=== PATIENT | female | born 1960 | race Caucasian/White ===

== ENCOUNTER → 2016-12-20 | Outpatient (CLI) | payer BC ==
[~2016-12-20] MED LIST: ASPI81TA28 PO; CLC100 PO; GABA1CAP5 PO; MULT-513 PO; OMEG10007 PO; OXYC5TAB PO; VITACAP26 PO; VITAMIN B3 PO
--- NOTE | 2016-12-20 16:29 | MAMMOGRAPHY REPORT ---
BILATERAL DIGITAL SCREENING MAMMOGRAM TOMOSYNTHESIS WITH CAD: 12/20/2016 TECHNIQUE: Breast tomosynthesis in addition to standard 2D mammography was performed. Current study was also evaluated with a Computer Aided Detection (CAD) system. COMPARISON: Comparison is made to exams dated: 12/13/2015 mammogram, 09/01/2014 mammogram, 08/03/2012 mammogram, 08/04/2013 mammogram, 07/18/2011 mammogram, and 05/18/2010 mammogram - [facility]. BREAST COMPOSITION: The tissue of both breasts is extremely dense, which lowers the sensitivity of mammography. FINDINGS: There are possible faint grouped calcifications seen within the left upper outer quadrant . Additionally, there are possible calcifications within the right lateral breast on the cc view, n ot clearly identified on the MLO view. Recommend bilateral spot magnification views for further hermann luation. The remainder of both breasts are stable compared to prior exams, without suspicious masses, calcifi cations, or areas of architectural distortion noted. IMPRESSION: ACR BI-RADS CATEGORY 0: INCOMPLETE EVALUATION: NEED ADDITIONAL IMAGING EVALUATION Possible bilateral calcifications, for which additional imaging evaluation is recommended. The josafat ent will be called to schedule an appointment. Approximately 10% of breast cancers are not detected with mammography. A negative mammographic repor t should not delay biopsy if a clinically suggestive mass is present. Nerissa Fish M.D. ah/:12/20/2016 16:04:35 Materials Associate: Sarah Beth GAUTHIER)(Nixon), [facility] letter sent: Addl Imaging 0 BI-RADS Code: ACR BI-RADS Category 0: Incomplete Evaluation: Need Additional Imaging Evaluation
== END | disposition home or self-care (01) ==
LOC: C.MAMM 14:40
PROVIDERS: ATTEND Family Medicine
DX: R92.0 Mammographic microcalcification found on diagnostic imaging of breast (principal)

== ENCOUNTER → 2016-12-30 | Outpatient (CLI) | payer BC ==
--- NOTE | 2016-12-30 14:01 | MAMMOGRAPHY REPORT ---
BILATERAL DIGITAL DIAGNOSTIC MAMMOGRAM: 12/30/2016 CLINICAL HISTORY: 56 year-old woman called back from screening mammography for possible bilateral mi crocalcifications. Family history of breast cancer = mother. TECHNIQUE: Spot magnification CC and ML views of each breast were obtained. COMPARISON: Comparison is made to exams dated: 12/20/2016 mammogram, 12/13/2015 mammogram, 09/01/2014 mammogram, 08/04/2013 mammogram, 08/03/2012 mammogram, and 07/18/2011 mammogram - [facility]. BREAST COMPOSITION: The tissue of both breasts is heterogeneously dense, which may obscure small ma sses. FINDINGS: There is a 6 mm cluster of faint punctate and amorphous microcalcifications in the upper outer quadrant of the left breast, approximately 4 cm from the nipple. Another smaller but similar- appearing cluster of faint punctate and amorphous microcalcifications is identified in the lateral r ight breast. Although these microcalcifications may represent benign fibrocystic changes, they were not clearly seen on the prior available 2012 and 2013 exams and are therefore indeterminate. Defin itive characterization with tissue sampling is recommended of the dominant cluster in the left breas t and pending benign pathology results, could follow the smaller cluster in the right breast in 6 mo nths. IMPRESSION: ACR BI-RADS CATEGORY 4: SUSPICIOUS 1. Left breast stereotactic guided biopsy is recommended for a 6 mm cluster of faint punctate and a morphous microcalcifications in the upper outer quadrant. 2. Pending benign pathology results in the left breast, would follow the smaller, similar-appearing cluster of faint punctate and amorphous microcalcifications in the lateral right breast in 6 months to ensure stability. These results and recommendations were discussed with the patient at the time of the exam. She tent atively scheduled the biopsy prior to leaving our department. Approximately 10% of breast cancers are not detected with mammography. A negative mammographic repor t should not delay biopsy if a clinically suggestive mass is present. Antonia Morales M.D. ay/:12/30/2016 13:59:22 Transmission Design Engineer: Luz Starks, [facility] letter sent: Abnormal / BI-RADS Code: ACR BI-RADS Category 4: Suspicious
== END | disposition home or self-care (01) ==
LOC: C.MAMM 10:36
PROVIDERS: ATTEND Family Medicine
DX: R92.0 Mammographic microcalcification found on diagnostic imaging of breast (principal); Z80.3 Family history of malignant neoplasm of breast

== ENCOUNTER → 2017-01-01 | Outpatient (CLI) | payer BC ==
--- NOTE | 2017-01-01 08:33 | Discharge Instructions ---
Discharge Instructions Procedure Procedure Date: Jan 01, 2017. Reason for visit: Left Calcs. Discharge Discharge Date: Jan 01, 2017. Discharge Diagnosis: status post breast biopsy Instructions Activity Recommendations: Additional Limitations (see below) Return to School/Work: no limitations Recommended Home Diet: No Limitations Provider Instructions: ACTIVITY RECOMMENDATIONS: * No lifting, pushing, pulling or exercising the affected side for three days. RETURN TO SCHOOL/WORK: * You may return to work/school after the procedure, but do not perform any strenuous activities for 24 to 48 hours. MEDICATIONS: * Tylenol (two 325 mg) every four to six hours if needed for mild pain (if not allergic to Tylenol). DIET: * Resume previous diet. SPECIAL CARE INSTRUCTIONS: * Keep biopsy site dry for 24 hours. May shower after 24 hours, but do not soak (bathe) incision. * May remove Tegaderm (plastic patch) tomorrow AFTER showering. * Leave the steri-strips on for one week. Allow the steri-strips to fall off by themselves. If not off after one week, you may remove them. You may place a Bandaid crosswise over the strips, if desired. * Apply ice 10 minutes on and 10 minutes off as needed. * Wear a bra at bedtime to sleep more comfortably for 2-3 days. * Your referring physician should have the results after approximately 5 to 7 business days. * Call for unusual bleeding, fever, drainage, etc or if you have any questions call during normal business hours or after hours call Dr Fish, . FOLLOW UP VISIT: Follow-up with Referring Physician as scheduled. Allergies Coded Allergies: No Known Allergies (Verified Allergy, Unknown, 06/19/05) Miguel A Justin Recommendations: Call your doctor if: * Temperature above 101 degrees * Pain not relieved by pain medicine ordered * There is increased drainage or redness from any incision * You have any unanswered questions or concerns. Your Doctors Instructions noted above were prepared by provider Nerissa Fish. Patient Signature Section: Patient Instructions Signature Page Majo Mujica Patient (or Guardian) Signature/Date: I have read and understand the instructions given to me by my caregivers. Caregiver/RN/Doctor Signature/Date: The above-named patient and/or guardian has received patient instructions on this date. + Original Patient Signature Page (only) stays with chart. Please make copy for patient.
--- NOTE | 2017-01-01 14:41 | MAMMOGRAPHY REPORT ---
THIS REPORT HAS BEEN AMENDED. STEREOTACTIC GUIDED BIOPSY LEFT BREAST: 01/01/2017 CLINICAL HISTORY: Indeterminate calcifications in the left upper outer quadrant. PATIENT CONSENT: The procedure, risks, benefits, and alternatives of stereotactic biopsy with clip p dang were discussed with the patient, and verbal and written consent was obtained. A timeout wa s performed immediately prior to the procedure. PROCEDURE DESCRIPTION: With stereotactic guidance, aseptic technique, and lidocaine as a local anest hetic (1% lidocaine to anesthetize the skin and 1% lidocaine with epinephrine to anesthetize the paulo per tissues), the area of concern was sampled multiple times with a 9-gauge vacuum-assisted biopsy n eedle (Suros Eviva). The path of approach was craniocaudal. The specimen radiograph demonstrates c alcifications to be present in the samples. A metallic marker clip was placed at the biopsy site. This was confirmed on postprocedure mammograms. Direct pressure was applied at the biopsy site and hemostasis was readily achieved. The patient tolerated the procedure without complication. She was given wound care instructions. COMPARISON: Comparison is made to exams dated: 12/30/2016 mammogram, 12/20/2016 mammogram, 12/13/2015 m ammogram, 09/01/2014 mammogram, 08/04/2013 mammogram, and 08/03/2012 mammogram - [facility]. IMPRESSION: STEREOTACTIC GUIDED BIOPSY Stereotactic biopsy of indeterminate calcifications in the left upper outer quadrant, with clip plac lulu. The patient will receive pathology results from her referring provider. Pending benign path ology results, recommend follow-up diagnostic mammograms of the right breast in 6 months to reevalua te right breast calcifications. Nerissa Fish M.D. ah/:01/01/2017 08:35:15 Tilt Wall Supervisor: Luz GAUTHIER)(Nixon), [facility] AMENDMENT: 01/08/2017 Nerissa Fish M.D. Pathology from left breast stereotactic biopsy was reviewed on 01/08/2017. The pathology showed misael gn breast tissue with microcalcifications, which is concordant with the imaging findings. As recomm ended on the prior diagnostic mammogram report, recommend follow-up diagnostic mammograms of the rig ht breast in 6 months to reevaluate right breast calcifications.
--- NOTE | 2017-01-01 14:43 | MAMMOGRAPHY REPORT ---
UNILATERAL LEFT DIGITAL DIAGNOSTIC MAMMOGRAM: 01/01/2017 CLINICAL HISTORY: Status post left breast stereotactic biopsy. TECHNIQUE: Postprocedural left CC and ML views were obtained. COMPARISON: Comparison is made to exams dated: 12/20/2016 mammogram, 12/13/2015 mammogram, 09/01/2014 mammogram, 08/04/2013 mammogram, and 08/03/2012 mammogram - [facility]. BREAST COMPOSITION: The tissue of the left breast is heterogeneously dense, which may obscure small masses. FINDINGS: A new biopsy marker clip is seen at the site of the biopsied calcifications in the left u pper outer quadrant. No significant postbiopsy hematoma is seen. IMPRESSION: POST PROCEDURE IMAGING FOR MARKER PLACEMENT New biopsy marker clip status post left breast stereotactic biopsy. Pathology results are pending. Approximately 10% of breast cancers are not detected with mammography. A negative mammographic repor t should not delay biopsy if a clinically suggestive mass is present. Nerissa Fish M.D. ah/:01/01/2017 08:46:30 Condominium Manager: Nerissa Fish MD, [facility] BI-RADS Code: Post Procedure Imaging For Marker Placement
== END | disposition home or self-care (01) ==
LOC: C.MAMM 07:55
PROVIDERS: ATTEND Family Medicine
DX: R92.1 Mammographic calcification found on diagnostic imaging of breast (principal)

== ENCOUNTER 2017-03-18 11:39 | Emergency (ER) | payer BC ==
[~2017-03-18] VITALS: Ht 160 cm; Wt 66.0 kg
[2017-03-18 11:44] VITALS: TEMP 36.6; Ht 160 cm; Wt 66.0 kg
--- NOTE | 2017-03-18 12:22 | EMERGENCY ROOM VISIT NOTE ---
History Report prepared by Paco: Magdy Salgado Under the Supervision of: Dr. Tiffany Fishman D.O. First contact with patient: 12:06 Chief Complaint: CARDIAC ASSESSMENT Stated Complaint: HEART POUNDING Nursing Triage Summary: intermittant chest pain and SOB since yesterday no n/v History of Present Illness The patient is a 56 year old female who presents to the Emergency Room with complaints of intermittent episodes of palpitations since yesterday. The patient describes "feeling like her heart is pounding out of her chest." The patient also becomes lightheaded and short of breath during these episodes. She does not feel fluttering or skipped beats, and does not become diaphoretic. The patient had three episodes yesterday, and two today. She was sitting at her desk at onset of the first episode, and the patient has never experienced this before. The palpitations usually last less than 10 seconds. She denies recent fevers, cough or cold symptoms, changes in bowel movements or urinary habits, or leg swelling. The patient takes Gabapentin and Multivitamins. She has not had any recent changes in her diet, caffeine consumptions, travel, or illness. The patient typically drinks 4-5 cups of coffee per day. She states that she drinks a lot of water. The patient does not have history of thyroid disease. She has family history of heart disease in her father and brother. Her father has history of heart attacks. Her brother has a pacemaker, however she is not sure why. The patient denies recent seasonal allergies or decongestant use. The patient is a former smoker. She smoked intermittently for 20 years, and has not smoked for the past 4-5 years. Source of History: patient Onset: yesterday Position: other (heart) Quality: other (palpitations) Timing: intermittent Associated Symptoms: + SOB, No fevers, No diaphoresis, No cough, No urinary symptoms Review of Systems See HPI for pertinent positives & negatives. A total of 10 systems reviewed and were otherwise negative. Past Medical & Surgical Medical Problems: (1) Acute appendicitis Surgical Problems: (1) S/P appendectomy Family History Patient reports no known family medical history. Social History Smoking Status: Former Smoker Marital Status: Housing Status: lives with family Current/Historical Medications Scheduled Aspirin (Aspirin Ec), 81 MG PO DAILY Docusate Sodium (Docusate Sodium), 100 MG PO BID Fish Oil ([place]-3), 1 CAP PO DAILY Gabapentin (Neurontin), 800 MG PO HS Multivitamins/Minerals (Mvi With Minerals), 1 TAB PO DAILY Vitamins C & E (Vitamin C), 1 CAP PO DAILY [Vitamin B3], 1 TAB PO DAILY Scheduled PRN Oxycodone/Acetaminophen 5MG/325MG (Roxicet 5MG/325MG), 1-2 TAB PO Q4H PRN for Pain Allergies Coded Allergies: No Known Allergies (Verified Allergy, Unknown, 06/19/05) Physical Exam Vital Signs Date Time Temp Pulse Resp B/P (MAP) Pulse Ox O2 Delivery O2 Flow Rate FiO2 03/18/17 13:58 76 20 129/74 96 Room Air 03/18/17 13:14 75 18 121/73 97 Room Air 03/18/17 11:58 78 03/18/17 11:44 36.6 93 18 140/93 99 Physical Exam GENERAL: alert, well appearing, well nourished, no distress, non-toxic EYE EXAM: normal conjunctiva. OROPHARYNX: no exudate, no erythema, lips, buccal mucosa, and tongue normal and mucous membranes are moist NECK: supple, no nuchal rigidity, no adenopathy, non-tender LUNGS: Clear to auscultation. Normal chest wall mechanics, no w/r/r HEART: no murmurs, S1 normal and S2 normal, sinus rhythm on tele ABDOMEN: abdomen soft, non-tender, normo-active bowel sounds, no masses, no rebound or guarding. BACK: Back is symmetrical on inspection and there is no deformity, no midline tenderness, no CVA tenderness. SKIN: no rashes and no bruising UPPER EXTREMITIES: upper extremities are grossly normal. LOWER EXTREMITIES: No pitting edema. NEURO EXAM: Normal sensorium, cranial nerves II-XII grossly intact, normal speech, no gross weakness of arms, no gross weakness of legs. Gross sensation intact. Medical Decision & Procedures ER Provider Diagnostic Interpretation: Radiology results have been interpreted by the radiologist and reviewed by me. CHEST ONE VIEW PORTABLE CLINICAL HISTORY: Atypical chest pain COMPARISON STUDY: 05/08/2016 FINDINGS: The cardiac and mediastinal contours are normal. There is no evidence of focal pulmonary consolidation. There is no evidence of failure. No pleural effusions are visualized.[ IMPRESSION: No active disease in the chest. Electronically signed by: Miguel A Pretty M.D. 03/18/2017 1:04 PM Dictated Date/Time: 03/18/2017 1:04 PM Laboratory Results 03/18/17 11:55 Red Blood Count 4.49, Mean Corpuscular Volume 93.5, Mean Corpuscular Hemoglobin 30.5, Mean Corpuscular Hemoglobin Concent 32.6, Mean Platelet Volume 10.3, Neutrophils (%) (Auto) 53.5, Lymphocytes (%) (Auto) 34.9, Monocytes (%) (Auto) 8.0, Eosinophils (%) (Auto) 2.8, Basophils (%) (Auto) 0.6, Neutrophils # (Auto) 5.76, Lymphocytes # (Auto) 3.75, Monocytes # (Auto) 0.86, Eosinophils # (Auto) 0.30, Basophils # (Auto) 0.06 03/18/17 11:55 Test 03/18/17 11:55 03/18/17 13:15 White Blood Count 10.75 K/uL (4.8-10.8) Red Blood Count 4.49 M/uL (4.2-5.4) Hemoglobin 13.7 g/dL (12.0-16.0) Hematocrit 42.0 % (37-47) Mean Corpuscular Volume 93.5 fL (80-100) Mean Corpuscular Hemoglobin 30.5 pg (25-34) Mean Corpuscular Hemoglobin Concent 32.6 g/dl (32-36) Platelet Count 285 K/uL (130-400) Mean Platelet Volume 10.3 fL (7.4-10.4) Neutrophils (%) (Auto) 53.5 % Lymphocytes (%) (Auto) 34.9 % Monocytes (%) (Auto) 8.0 % Eosinophils (%) (Auto) 2.8 % Basophils (%) (Auto) 0.6 % Neutrophils # (Auto) 5.76 K/uL (1.4-6.5) Lymphocytes # (Auto) 3.75 K/uL (1.2-3.4) Monocytes # (Auto) 0.86 K/uL (0.11-0.59) Eosinophils # (Auto) 0.30 K/uL (0-0.5) Basophils # (Auto) 0.06 K/uL (0-0.2) RDW Standard Deviation 46.7 fL (36.4-46.3) RDW Coefficient of Variation 13.7 % (11.5-14.5) Immature Granulocyte % (Auto) 0.2 % Immature Granulocyte # (Auto) 0.02 K/uL (0.00-0.02) Anion Gap 4.0 mmol/L (3-11) Est Creatinine Clear Calc Drug Dose 59.6 ml/min Estimated GFR () 77.1 Estimated GFR (Non- 66.5 BUN/Creatinine Ratio 12.7 (10-20) Calcium Level 8.9 mg/dl (8.5-10.1) Magnesium Level 2.3 mg/dl (1.8-2.4) Total Bilirubin 0.2 mg/dl (0.2-1) Aspartate Amino Transf (AST/SGOT) 14 U/L (15-37) Alanine Aminotransferase (ALT/SGPT) 24 U/L (12-78) Alkaline Phosphatase 120 U/L (45-117) Troponin I < 0.015 ng/ml (0-0.045) Total Protein 7.3 gm/dl (6.4-8.2) Albumin 4.1 gm/dl (3.4-5.0) Globulin 3.2 gm/dl (2.5-4.0) Albumin/Globulin Ratio 1.3 (0.9-2) Thyroid Stimulating Hormone (TSH) 2.660 uIu/ml (0.300-4.500) Urine Color YELLOW Urine Appearance CLEAR (CLEAR) Urine pH 8.0 (4.5-7.5) Urine Specific [place] 1.010 (1.000-1.030) Urine Protein NEG (NEG) Urine Glucose (UA) NEG (NEG) Urine Ketones NEG (NEG) Urine Occult Blood NEG (NEG) Urine Nitrite NEG (NEG) Urine Bilirubin NEG (NEG) Urine Urobilinogen NEG (NEG) Urine Leukocyte Esterase NEG (NEG) Laboratory results per my review. ECG Indication: palpitations Rate (beats per minute): 82 Rhythm: normal sinus Findings: no acute ischemic change, no ectopy ED Course 1208: The patient was evaluated in room B8. A complete history and physical exam was performed. 1330: Updated the patient and discussed the workup. She understands and agrees with the discharge instructions. The patient is ready for discharge. Medical Decision Differential diagnosis: Etiologies such as premature contractions, electrolyte abnormality, dehydration , cardiac dysrhythmia, thyroid dysfunction, acs, pulmonary embolism, infection, gastrointestinal, as well as others were entertained. Blood pressure screening: Patient was found to have a slightly elevated blood pressure due to circumstances. I do not believe that the patient requires hypertension monitoring. Medication Reconciliation: I attest that I have personally reviewed the patient' s current medication list. Pt without evidence of dysrhythmia while monitored here and no recurrence of symptoms. Discussed with pt possible etiology, f/u with PCP, likely need for additional outpt cardiology evaluation, sx to watch/return for, she verbalized understanding and was agreeable with plan. Doubt pe, acs, dissection, infectious etiology, thyroid storm, no clinical evidence of dehydration, no significant anemia. Impression Primary Impression: Palpitations Scribe Attestation The scribe's documentation has been prepared under my direction and personally reviewed by me in its entirety. I confirm that the note above accurately reflects all work, treatment, procedures, and medical decision making performed by me. Departure Information Dispostion Home / Self-Care Referrals Facundo Patel M.D. (PCP) Forms IMPORTANT VISIT INFORMATION Patient Instructions My [facility] Additional Instructions Please call and follow-up with your family doctor and discuss follow-up with a cigarette stamper also. If you have any recurrent events, worsening pain, trouble breathing, dizziness or passing out, develop fevers, vomiting, or you have any other new or concerning symptoms, please return to the emergency room.
[2017-03-18 12:24] LABS: BASO % 0.6 %; BASO ABS # 0.06 K/uL (0-0.2); COMPLETE YES; EOS % 2.8 %; IG% 0.2 %; LYMPH % 34.9 %; LYMPH ABS # 3.75 K/uL (1.2-3.4); MEAN CELL VOLUME 93.5 fL (80-100); MEAN CORPUSCULAR HEMOGLOBIN 30.5 pg (25-34); MEAN CORPUSCULAR HGB CONC 32.6 g/dl (32-36); MEAN PLATELET VOLUME 10.3 fL (7.4-10.4); NEUT % 53.5 %; PLATELET COUNT 285 K/uL (130-400); RED BLOOD COUNT 4.49 M/uL (4.2-5.4); WHITE BLOOD COUNT 10.75 K/uL (4.8-10.8)
[2017-03-18 12:33] LABS: ALT/SGPT 24 U/L (12-78); AST/SGOT 14 U/L (15-37); BLOOD UREA NITROGEN 12 mg/dl (7-18); BUN/CREATININE RATIO 12.7 (10-20); CALCIUM 8.9 mg/dl (8.5-10.1); CARBON DIOXIDE 30 mmol/L (21-32); CHLORIDE 107 mmol/L (98-107); CREATININE 0.95 mg/dl (0.60-1.20); GLUCOSE 100 mg/dl (70-99); MAGNESIUM 2.3 mg/dl (1.8-2.4); SODIUM 141 mmol/L (136-145)
[2017-03-18 12:43] LABS: ALB/GLOB RATIO 1.3 (0.9-2); ALKALINE PHOSPHATASE 120 U/L (45-117)
--- NOTE | 2017-03-18 13:05 | DIAGNOSTIC IMAGING REPORT ---
CHEST ONE VIEW PORTABLE CLINICAL HISTORY: Atypical chest pain COMPARISON STUDY: 05/08/2016 FINDINGS: The cardiac and mediastinal contours are normal. There is no evidence of focal pulmonary consolidation. There is no evidence of failure. No pleural effusions are visualized.[ IMPRESSION: No active disease in the chest. Electronically signed by: Miguel A Pretty M.D. 03/18/2017 1:04 PM Dictated Date/Time: 03/18/2017 1:04 PM
[2017-03-18 13:58] VITALS: BP 129/74; PULSE 76; O2SAT 96
[2017-03-18 14:11] LABS: URINE APPEARANCE CLEAR (CLEAR); URINE BILIRUBIN NEG (NEG); URINE COLOR YELLOW; URINE NITRITE NEG (NEG); UROBILINOGEN NEG (NEG); ZZUR CULT IF INDIC CLEAN CATCH NO
[2017-03-18 14:27] LABS: MANUAL MICROSCOPIC REQUIRED? NO; REVIEW REQ? NO
== END 2017-03-18 14:00 | disposition home or self-care (01) ==
LOC: C.EDB 11:40
DX: R00.2 Palpitations (principal); Z87.891 Personal history of nicotine dependence; Z79.82 Long term (current) use of aspirin

== ENCOUNTER → 2017-07-08 | Outpatient (CLI) | payer BC ==
--- NOTE | 2017-07-08 15:46 | MAMMOGRAPHY REPORT ---
UNILATERAL RIGHT DIGITAL DIAGNOSTIC MAMMOGRAM TOMOSYNTHESIS WITH CAD: 07/08/2017 CLINICAL HISTORY: 56-year-old woman presents 6 months after a benign stereotactic guided left breast biopsy to reassess benign-appearing right breast microcalcifications that were not sampled with a nee dle biopsy. TECHNIQUE: Right breast tomosynthesis in addition to standard 2D mammography was performed. Spot mag nification right CC and ML views were also obtained. Current study was also evaluated with a Compute r Aided Detection (CAD) system. COMPARISON: Comparison is made to exams dated: 01/01/2017 mammogram, 12/30/2016 mammogram, 12/20/2016 bruna mogram, 12/13/2015 mammogram, 09/01/2014 mammogram, and 08/04/2013 mammogram - [facility]. BREAST COMPOSITION: The tissue of the right breast is extremely dense, which lowers the sensitivity of mammography. FINDINGS: The parenchymal pattern of the right breast is similar to prior mammograms. A nodular asy mmetry in the posterior slightly inferior right breast on the MLO view effaces with the additional ML O 2-D view with the nipple more in profile. Additionally this effaces on the corresponding tomosynth esis images most likely representing normal overlapping tissue. Spot magnification views of the right breast redemonstrate 1-2 very faint groupings of amorphous micr ocalcifications in the upper outer quadrant, that are unchanged comparing to the spot magnification v iews obtained on 12/30/2016 and are most likely benign. However, another short interval follow-up di agnostic mammogram including spot magnification views is recommended to ensure longer stability. No other new suspicious mass, new microcalcifications, focal area of distortion or asymmetry is seen in the right breast. IMPRESSION: ACR-BI-RADS CATEGORY 3: PROBABLY BENIGN Stable mammographic appearance of the right breast including 1-2 faint groupings of amorphous microca lcifications in the upper outer quadrant. Another short interval follow-up right diagnostic mammogra m including spot magnification views is recommended to ensure longer stability. Annual left mammogra phy will also be due at that time. Approximately 10% of breast cancers are not detected with mammography. A negative mammographic report should not delay biopsy if a clinically suggestive mass is present. Antonia Morales M.D. ay/:07/08/2017 14:21:38 Tile Professional: Luz ALEGRIA(R)(M), [facility] letter sent: Follow Up Recommended 3 BI-RADS Code: ACR-BI-RADS Category 3: Probably Benign
== END | disposition home or self-care (01) ==
LOC: C.MAMM 13:43
PROVIDERS: ATTEND Family Medicine
DX: R92.0 Mammographic microcalcification found on diagnostic imaging of breast (principal)

== ENCOUNTER → 2018-01-08 | Outpatient (CLI) | payer BC ==
[~2018-01-08] MED LIST changes: +GABA-1220 PO; -GABA1CAP5 PO
--- NOTE | 2018-01-09 07:46 | MAMMOGRAPHY REPORT ---
BILATERAL DIGITAL DIAGNOSTIC MAMMOGRAM TOMOSYNTHESIS WITH CAD: 01/08/2018 CLINICAL HISTORY: History of benign stereotactic biopsy of the left breast. The patient presents for short interval follow-up of right breast calcifications. She denies any current complaints. TECHNIQUE: Breast tomosynthesis in addition to standard 2D mammography was performed. Current study was also evaluated with a Computer Aided Detection (CAD) system. Bilateral CC and MLO 2D and tomosyn thesis images and spot magnification right CC and ML views were obtained. COMPARISON: Comparison is made to exams dated: 07/08/2017 mammogram, 01/01/2017 mammogram, 01/01/2017 st ereotactic biopsy, 12/30/2016 mammogram, 12/20/2016 mammogram, and 12/13/2015 mammogram - [facility]. BREAST COMPOSITION: The tissue of both breasts is extremely dense, which lowers the sensitivity of m ammography. FINDINGS: One to two small faint groupings of amorphous calcifications in the right upper outer quad rant are stable dating back to at least the December 2016 exam. Additionally, the calcifications appear somewhat similar to the biopsied left breast calcifications which yielded benign pathology. Given t he stability and benign morphology, the calcifications are considered benign. The remainder of both breasts demonstrate no suspicious masses, calcifications, or areas of architectural distortion. A bi opsy clip is again noted within the left upper outer quadrant. IMPRESSION: ACR BI-RADS CATEGORY 2: BENIGN Faint groupings of amorphous calcifications in the right upper outer quadrant are stable dating back to at least December 2016 exam and are considered benign. There is no mammographic evidence of malignan cy in either breast. A 1 year screening mammogram is recommended. The patient has been verbally notified of the results. Approximately 10% of breast cancers are not detected with mammography. A negative mammographic report should not delay biopsy if a clinically suggestive mass is present. Nerissa Fish M.D. /:01/08/2018 14:08:04 Advance Agent: Luz Starks, [facility] letter sent: Normal 1/2 BI-RADS Code: ACR BI-RADS Category 2: Benign
== END | disposition home or self-care (01) ==
LOC: C.MAMM 13:39
PROVIDERS: ATTEND Family Medicine
DX: R92.2 Inconclusive mammogram (principal); R92.1 Mammographic calcification found on diagnostic imaging of breast

== ENCOUNTER 2024-03-25 15:50 | Inpatient (IN) ==
--- NOTE | 2024-03-25 16:03 | ED Triage Note ---
Date of Service March 25, 2024 Provider in Triage Author: Humza Robin History of Present Illness This patient was briefly evaluated while in triage. An abbreviated physical exam was performed. This patient is a 63-year-old Female who presents to the ED for evaluation of nausea and 3 episodes of darker bloody vomit that started this afternoon. Patient reports serious chills earlier today. The patient denies any significant abdominal pain. She does have a headache. Patient denies any urinary symptoms. Patient denies any known sick contacts. Patient rates her headache a 4 out of 10. Physical Exam CONSTITUTIONAL: Healthy and well nourished. Patient is holding a bucket. HEENT: No scleral icterus or conjunctival injection. Mucous membranes are dry. GASTROINTESTINAL: Bowel sounds present in all quadrants. MUSCULOSKELETAL: Full range of motion of all joints without discomfort. INTEGUMENTARY: No rash or other significant dermatologic conditions noted. HEMATOLOGIC: No ecchymosis or petechiae. PSYCHIATRIC: Flat affect. NEUROLOGIC: No focal neurologic deficits noted. Initial orders for labs and / or imaging were placed and patient was placed in the waiting area until a bed is available. Please see further documentation for the full ED course.
--- NOTE | 2024-03-25 16:31 | Emergency Department Note ---
Impression & Plan Acute upper gastrointestinal bleeding, Anemia, Nausea & vomiting ED Provider Note NAME: YANDEL MAURICE AGE: 63 SEX: F : 1960 ARRIVES VIA: Walk-In INFORMANT: Patient, ED PROVIDER(S): Remigio Moss DO CHIEF COMPLAINT: Nausea vomiting HPI: The patient is a 63-year-old female who presented to the emergency department for vomiting. The patient's had coffee ground emesis throughout the day. The patient denies having any diarrhea. She denies having any abdominal pain at this time. She does note some dark stool. She does use ibuprofen occasionally but is not currently on any steroids or oral anticoagulants. She does not take aspirin. The patient has not been seen by her family doctor but came to the emergency department for further evaluation. ROS: See above HPI for pertinent positives & negatives. A total of 10 systems reviewed and were otherwise negative. PAST MEDICAL HISTORY: See Below PAST SURGICAL HISTORY: See Below FAMILY HISTORY: See Below SOCIAL HISTORY: See Below HOME MEDICATIONS: See Below ALLERGIES: See Below VITALS: See Below PHYSICAL EXAMINATION: GENERAL: Patient is awake alert in no acute distress patient is resting comfortably and showing no signs of anxiety EYES: The conjunctivae are clear. The pupils are round and reactive. EARS, NOSE, MOUTH AND THROAT: The nose is without any evidence of any deformity. NECK: The neck is nontender and supple. RESPIRATORY: Normal respiratory effort is noted there is no evidence of wheezing rhonchi or rales CARDIOVASCULAR: Regular rate and rhythm noted there no murmurs rubs or gallops normal S1 normal S2. GASTROINTESTINAL: The abdomen is soft. There is tenderness to palpation in the left upper quadrant. There is no guarding rigidity. Rectal exam revealed black stool which was heme positive. MUSCULOSKELETAL/EXTREMITIES: There is no evidence of gross deformity full range of motion is noted in the hips and shoulders. SKIN: There is no obvious evidence of any rash. There are no petechiae, pallor or cyanosis noted. NEUROLOGIC: Patient is awake alert and oriented x3. MEDICAL DECISION MAKING: The patient is a 63-year-old female who presented to the emergency department for an evaluation of nausea vomiting. The patient was found to have coffee- ground emesis. She was found to have melena from her rectal exam. I discussed patient's laboratory and radiographic studies with her. She was not found to have any acute process on the CT of the abdomen and pelvis. The patient was treated with a Protonix bolus as well as drip. She was also treated with Pepcid and Zofran. She was given IV fluids. I discussed the patient's condition with her. I also discussed her condition with the on-call [facility]. They have agreed to evaluate the patient in the emergency department for further management and disposition. Triage Nursing notes reviewed. Prior medical records reviewed Vital Signs: reviewed and remarkable for no significant abnormalities Differential diagnosis: Diverticulosis, AVM, coagulopathy, colitis, inflammatory bowel disease, malignancy, Ginna-Edwards tear, esophagitis, peptic ulcer disease, variceal bleed, gastritis, epistaxis, fissure, hemorrhoids, as well as other pathologies. ER treatment provided: See below Diagnostics interpreted by me: ECG: EKG was obtained in the emergency department. My interpretation is normal sinus rhythm at 85 bpm. There is no ectopy. There is no acute ST segment abnormalities noted. Cardiac Monitoring: An order was placed for continuous cardiac monitoring. The monitor shows a rate of 75 bpm with sinus rhythm. Laboratory studies: As stated above and show below. Imaging studies: See below. Radiographic imaging was reviewed by myself Consultation(s): I discussed this case with Dr. Cardenas who is on-call for gastroenterology. I discussed this case Dr. Oneill [facility] ED COURSE: Procedures: none Critical Care: I have personally spent greater than 45 minutes of critical care time in the direct management of this patient. This includes bedside care, interpretation of diagnostic studies, and testing, discussion with consultants, patient, and family members, and other required patient management activities. This 45 minutes is in excess of all separately billable procedures. Past Med/Surg History Problem List Nausea & vomiting (Acute) Anemia (Acute) Acute upper gastrointestinal bleeding (Acute) Upper GI bleed Acute appendicitis S/P appendectomy Social History Smoking Status: Former smoker Feels Safe at Home: Yes Allergies Allergies Allergy/AdvReac Type Severity Reaction Status Date / Time No Known Allergies Allergy Unknown Verified 03/25/24 19:27 Home Meds Home Medications Medication Instructions Recorded Confirmed celecoxib 100 mg capsule 100 mg PO BID PRN Pain 03/25/24 03/25/24 cholecalciferol (vitamin D3) 25 25 mcg PO QAM 03/25/24 03/25/24 mcg (1,000 unit) tablet (Vitamin D3) gabapentin 400 mg capsule 400 mg PO QPM 03/25/24 03/25/24 multivitamin 1 tab PO QAM 03/25/24 03/25/24 omega 2-efv-jnr-fish oil 1,000 mg 1 cap PO QAM 03/25/24 03/25/24 (120 mg-180 mg) capsule (Fish Oil) Results & Data (ED) Vital Signs Vital Signs - 24 hr 03/25/24 15:57 03/25/24 16:30 03/25/24 16:43 Temperature 36.4 C L Temperature Source Oral Pulse Rate 87 85 Pulse Rate [Apical] 78 Pulse Rhythm [Apical] Pulse Strength [Apical] Respiratory Rate 18 14 Respiratory Effort / Characteristics Non-Labored Spontaneous Respiratory Depth Normal Respiratory Pattern Blood Pressure 103/89 Blood Pressure [Right Arm] 124/86 Blood Pressure Mean 93 Blood Pressure Mean [Right Arm] 98 Blood Pressure Position [Right Arm] Pulse Oximetry 100 100 Oxygen Delivery Method Room Air Room Air Sepsis Recent Fever Within 48 Hours No Sepsis New/Unexplained Change in Mental Status No Sepsis Action Taken by Nursing No Action Required 03/25/24 16:54 03/25/24 18:00 03/25/24 20:00 Temperature Temperature Source Pulse Rate Pulse Rate [Apical] 75 98 H Pulse Rhythm [Apical] Regular Pulse Strength [Apical] Normal Respiratory Rate 16 22 Respiratory Effort / Characteristics Non-Labored Spontaneous Non-Labored Respiratory Depth Normal Normal Respiratory Pattern Regular Regular Blood Pressure Blood Pressure [Right Arm] 118/70 111/57 L Blood Pressure Mean Blood Pressure Mean [Right Arm] 86 75 Blood Pressure Position [Right Arm] Lying Pulse Oximetry 98 98 Oxygen Delivery Method Room Air Room Air Room Air Sepsis Recent Fever Within 48 Hours Sepsis New/Unexplained Change in Mental Status Sepsis Action Taken by Nursing 03/25/24 20:30 03/25/24 22:26 Temperature Temperature Source Pulse Rate 73 Pulse Rate [Apical] 79 Pulse Rhythm [Apical] Regular Pulse Strength [Apical] Normal Respiratory Rate 15 Respiratory Effort / Characteristics Non-Labored Respiratory Depth Normal Respiratory Pattern Regular Blood Pressure Blood Pressure [Right Arm] 96/71 L Blood Pressure Mean Blood Pressure Mean [Right Arm] 79 Blood Pressure Position [Right Arm] Lying Pulse Oximetry 97 Oxygen Delivery Method Room Air Sepsis Recent Fever Within 48 Hours Sepsis New/Unexplained Change in Mental Status Sepsis Action Taken by [place] Medications Current Medication List: was personally reviewed by me Laboratory Data Attestation: I reviewed the patient's lab results. 03/25/24 20:22 03/25/24 16:23 Lab Results 03/25/24 03/25/24 03/25/24 Range/Units 16:23 16:54 20:22 WBC 12.69 H (4.8-10.8) K/ul RBC 3.65 L (4.20-5.40) M/uL Hgb 10.7 L 8.5 L (12.0-16.0) g/dl Hct 33.6 L 25.9 L (37.0-47.0) % MCV 92.1 (80.0-100.0) fL MCH 29.3 (25.0-34.0) pg MCHC 31.8 L (32.0-36.0) g/dL RDW Std Deviation 42.2 (36.4-46.3) fL RDW Coeff of Sherri 12.6 (11.5-14.5) % Plt Count 253 (130-400) K/uL MPV 10.1 (9.4-12.4) fL Immature Gran % (Auto) 0.6 % Neut % (Auto) 73.5 % Lymph % (Auto) 17.7 % [place] % (Auto) 7.7 % Eos % (Auto) 0.1 % Baso % (Auto) 0.4 % Neut # (Auto) 9.32 H (1.40-6.50) K/uL Lymph # (Auto) 2.25 (1.20-3.40) K/uL [place] # (Auto) 0.98 H (0.11-0.59) K/uL Eos # (Auto) 0.01 (0.00-0.50) K/uL Baso # (Auto) 0.05 (0.00-0.20) K/uL Immature Gran # (Auto) 0.08 (0.01-0.20) K/uL PT 10.5 (9.0-12.0) Seconds INR 1.0 (0.9-1.1) Sodium 138 (136-145) mmol/L Potassium 4.0 (3.5-5.1) mmol/L Chloride 104 (98-107) mmol/L Carbon Dioxide 29 (21-32) mmol/L Anion Gap 5 (3-11) BUN 55 H (6-23) mg/dl Creatinine 0.74 (0.6-1.2) mg/dl Est Cr Clr Drug Dosing Not Reportable Est GFR ( Amer) 99.2 ml/min Est GFR (Non-Af Amer) 85.6 ml/min BUN/Creatinine Ratio 74.3 H (10-20) Glucose 146 H (70-99(Fasting)) mg/dl Calcium 9.2 (8.6-10.3) mg/dl Total Bilirubin 0.3 (0.2-1.0) mg/dl AST 23 (13-39) U/L ALT 21 (7-52) U/L Alkaline Phosphatase 86 (34-104) U/L Troponin I High Sens 4.0 (0-14) pg/ml Total Protein 6.4 (6.0-8.3) gm/dl Albumin 4.3 (3.4-5.0) gm/dl Globulin 2.1 L (2.5-4.0) gm/dl Albumin/Globulin Ratio 2.0 (0.9-2) Lipase 25 (11-82) U/L Blood Type A Negative Antibody Screen NEGATIVE Administered Medications Lactated Ringer's (Lr) 1,000 mls @ 125 mls/hr IV .Q8H RON Stop: 03/26/24 19:14 Last Admin: 03/25/24 19:15 Dose: 125 mls/hr Documented By: JESSICA Discontinued Medications Sodium Chloride (Nss) 1,000 mls @ 999 mls/hr IV .Q1H1M STA Stop: 03/25/24 17:03 Last Infusion: 03/25/24 17:38 Dose: Infused Documented By: Admin: 03/25/24 16:35 Dose: 999 mls/hr Documented By: RISHABH Pantoprazole Sodium 40 mg/ (Dextrose) 100 mls @ 20 mls/hr IV Q5H RON Stop: 04/24/24 16:44 Last Infusion: 03/25/24 19:09 Dose: Infused Documented By: Admin: 03/25/24 17:31 Dose: 8 mg/hr, 20 mls/hr Documented By: RISHABH Famotidine (Pepcid 20mg Iv Push) 20 mg in 5 mls @ 2.5 mls/min IV NOW STA Stop: 03/25/24 16:25 Last Admin: 03/25/24 16:40 Dose: 2.5 mls/min Documented By: RISHABH Pantoprazole Sodium 80 mg/ (Dextrose) 120 mls @ 480 mls/hr IV NOW ONE Stop: 03/25/24 16:38 Last Infusion: 03/25/24 17:15 Dose: Infused Documented By: Admin: 03/25/24 17:00 Dose: 480 mls/hr Documented By: RISHABH Ioversol (Optiray 320 100ml) 94 ml IV ONCE ONE Stop: 03/25/24 17:21 Last Admin: 03/25/24 17:20 Dose: 94 ml Documented By: GARRET Ondansetron HCl (Ondansetron Inj 2 Mg/Ml 2 Ml Vial) 4 mg IV NOW STA Stop: 03/25/24 16:04 Last Admin: 03/25/24 16:39 Dose: 4 mg Documented By: RISHABH Pantoprazole Sodium (Pantoprazole Bolus/Drip) 1 each IV NOW STA Stop: 03/25/24 16:25 Last Admin: 03/25/24 17:31 Dose: Not Given Documented By: RISHABH Imaging Data Attestation: I personally reviewed and interpreted this imaging study as follows: My Impression: 1 view chest x-ray was obtained in the emergency department. My interpretation is no free air or definite infiltrate, final report below. CT of the abdomen and pelvis was obtained in the emergency department. My interpretation is no signs of bowel obstruction, final report below. Radiologist's Impression: Chest X-Ray 03/25/24 16:04 XR chest 1V portable CLINICAL HISTORY: Nausea and vomiting. COMPARISON STUDY: Chest radiograph March 18, 2017. FINDINGS: Patient is mildly rotated. Lung volumes are normal. Lungs are clear. There is no pneumothorax or pleural effusion. Cardiac size is normal. Mediastinal contours are normal. There is no evidence for pulmonary edema. IMPRESSION: No acute cardiopulmonary findings. ACT 112: Negative or not required by law. Electronically signed by: Timmy Acosta M.D. 03/25/2024 6:18 PM Abdomen/Pelvis CT 03/25/24 16:28 CT OF THE ABDOMEN AND PELVIS WITH CONTRAST CLINICAL HISTORY: Upper GI bleed. COMPARISON STUDY: CT of the abdomen and pelvis May 08, 2016 and right upper quadrant ultrasound May 29, 2018. TECHNIQUE: Following IV administration of 94 mL of Optiray, axial images of the abdomen and pelvis were obtained from the lung bases to the proximal femurs. Images were reviewed in the axial, sagittal, and coronal planes. IV contrast was administered without complication. Automated exposure control was utilized for the study. A dose lowering technique was utilized adhering to the principles of ALARA. CT DOSE: 728.79 mGy.cm FINDINGS: Lung bases are unremarkable. No pneumatosis, free air or portal venous gas is present. A few subcentimeter hypodense hepatic lesions favor cysts. The spleen, adrenal glands and kidneys are normal. There is no hydronephrosis. There is no biliary or pancreatic ductal dilatation. Hyperdense foci within the stomach likely reflect ingested tablets. No intraluminal contrast within the stomach, small or large bowel is identified to suggest active GI bleed by CT. The appendix is surgically absent. There is no lymphadenopathy. There is a moderate amount of stool within the rectum. No fluid collections are present. IMPRESSION: 1. No acute process within the abdomen or pelvis. 2. No intraluminal contrast to suggest active GI bleed by CT. 3. No bowel obstruction. No bowel wall thickening. Moderate amount of stool within the rectum. ACT 112: Negative or not required by law. Electronically signed by: Timmy Acosta M.D. 03/25/2024 5:48 PM Discharge Plan Visit Data Chief Complaint: Vomiting Stated Complaint: VOMITING BLOOD ED Provider: Remigio Moss Discharge Problem: Acute upper gastrointestinal bleeding, Anemia, Nausea & vomiting Patient Disposition: Being Evaluated by Hospitalist Discharge Instructions Interventions: ED Discharge Assessment Last Done: 03/25/24 22:27 Forms Stand Alone Forms: My [employer] Prescriptions Prescriptions: No Action gabapentin 400 mg capsule 400 mg PO QPM celecoxib 100 mg capsule 100 mg PO BID PRN (Reason: Pain) cholecalciferol (vitamin D3) [Vitamin D3] 25 mcg (1,000 unit) Tablet 25 mcg PO QAM omega 2-rah-ona-fish oil [Fish Oil] 1,000 mg (120 mg-180 mg) Capsule 1 cap PO QAM multivitamin [Multiple Vitamin] Tablet 1 tab PO QAM Referrals Referrals: Vicki Fletcher DO [Primary Care Provider] - Discharge Problem: Anemia Qualifiers: Anemia type: unspecified type Qualified Code(s): D64.9 - Anemia, unspecified Nausea & vomiting Qualifiers: Vomiting type: unspecified Qualified Code(s): R11.2 - Nausea with vomiting, unspecified
[2024-03-25] MEDS: SODIUM CHLORIDE 0.9% 1,000 ML IV STA (16:35)
[2024-03-25 16:38] LABS: Basophils # (auto) 0.05 K/uL (0.00-0.20); Basophils % (auto) 0.4 %; Eosinophils # (auto) 0.01 K/uL (0.00-0.50); Eosinophils % (auto) 0.1 %; Hematocrit (blood only) 33.6 % (37.0-47.0); Hemoglobin 10.7 g/dl (12.0-16.0); Immature Granulocytes # (auto) 0.08 K/uL (0.01-0.20); Immature Granulocytes % (auto) 0.6 %; Lymphocytes # (auto) 2.25 K/uL (1.20-3.40); Lymphocytes % (auto) 17.7 %; Mean Corpuscular Hemoglobin 29.3 pg (25.0-34.0); Mean Corpuscular Hgb Conc 31.8 g/dL (32.0-36.0); Mean Corpuscular Volume 92.1 fL (80.0-100.0); Mean Platelet Volume 10.1 fL (9.4-12.4); Monocytes # (auto) 0.98 K/uL (0.11-0.59); Monocytes % (auto) 7.7 %; Neutrophils # (auto) 9.32 K/uL (1.40-6.50); Neutrophils % (auto) 73.5 %; Platelet Count 253 K/uL (130-400); RDW Coefficient of Variation 12.6 % (11.5-14.5); RDW Standard Deviation 42.2 fL (36.4-46.3); Red Blood Count 3.65 M/uL (4.20-5.40); White Blood Count 12.69 K/ul (4.8-10.8)
[2024-03-25] MEDS: ONDANSETRON INJ 2 MG/ML 2 ML VIAL IV STA (16:39)
[2024-03-25] MEDS: FAMOTIDINE 20MG IV PUSH 20 MG/5 ML SYR IV STA (16:40)
[2024-03-25 16:57] LABS: Alanine Aminotransferase 21 U/L (7-52); Albumin Level 4.3 gm/dl (3.4-5.0); Alkaline Phosphatase 86 U/L (34-104); Anion Gap 5 (3-11); Aspartate Aminotransferase 23 U/L (13-39); BUN Creatinine Ratio 74.3 (10-20); Bilirubin,Total 0.3 mg/dl (0.2-1.0); Blood Urea Nitrogen 55 mg/dl (6-23); Calcium 9.2 mg/dl (8.6-10.3); Carbon Dioxide 29 mmol/L (21-32); Chloride 104 mmol/L (98-107); Est GFR (African American) 99.2 ml/min; Est GFR (Non-African American) 85.6 ml/min; Globulin 2.1 gm/dl (2.5-4.0); Glucose 146 mg/dl (70-99(Fasting)); Lipase 25 U/L (11-82); Sodium 138 mmol/L (136-145); Total Protein 6.4 gm/dl (6.0-8.3)
[2024-03-25] MEDS: PANTOprazole 80 MG in DEXTROSE 5% 100 ML IV ONE (17:00)
[2024-03-25 17:18] LABS: Prothrombin Time 10.5 Seconds (9.0-12.0)
[2024-03-25] MEDS: OPTIRAY 320 100ml IV ONE (17:20)
[2024-03-25] MEDS: PANTOPRAZOLE BOLUS/DRIP IV STA (17:31)
[2024-03-25] MEDS: PANTOprazole 40 MG in DEXTROSE 5% MINI-B 100 ML IV SCH (17:31)
--- NOTE | 2024-03-25 17:50 | CT Scan Report ---
CT OF THE ABDOMEN AND PELVIS WITH CONTRAST CLINICAL HISTORY: Upper GI bleed. COMPARISON STUDY: CT of the abdomen and pelvis May 08, 2016 and right upper quadrant ultrasound A ugust 2017. TECHNIQUE: Following IV administration of 94 mL of Optiray, axial images of the abdomen and pelvis we re obtained from the lung bases to the proximal femurs. Images were reviewed in the axial, sagittal, and coronal planes. IV contrast was administered without complication. Automated exposure control wa s utilized for the study. A dose lowering technique was utilized adhering to the principles of ALARA . CT DOSE: 728.79 mGy.cm FINDINGS: Lung bases are unremarkable. No pneumatosis, free air or portal venous gas is present. A fe w subcentimeter hypodense hepatic lesions favor cysts. The spleen, adrenal glands and kidneys are nor mal. There is no hydronephrosis. There is no biliary or pancreatic ductal dilatation. Hyperdense foci within the stomach likely reflect ingested tablets. No intraluminal contrast within the stomach, sma ll or large bowel is identified to suggest active GI bleed by CT. The appendix is surgically absent. There is no lymphadenopathy. There is a moderate amount of stool within the rectum. No fluid collecti ons are present. IMPRESSION: 1. No acute process within the abdomen or pelvis. 2. No intraluminal contrast to suggest active GI bleed by CT. 3. No bowel obstruction. No bowel wall thickening. Moderate amount of stool within the rectum. ACT 112: Negative or not required by law. Electronically signed by: Timmy Acosta M.D. 03/25/2024 5:48 PM
--- NOTE | 2024-03-25 18:09 | History & Physical Report ---
Date of Service March 25, 2024 Assessment & Plan (1) Upper GI bleed: Plan: Pt is a 63 yo female with PMH of sciatic nerve pain presenting d/t blood emesis. Upper GI bleed - pt notes emesis x4 today - lab work significant for leukocytosis to 12, Hgb 10.7 (last Hgb of 14 04/2018), and BMP WNL - CXR WNL, CTAP no signs of active bleed or bowel obstruction - will recheck Hgb now and trend - s/p pantoprazole 80 mg x1 in ER; continue with pantoprazole 40 mg IV BID - keep NPO - GI consult for consideration of inpatient scope Sciatic nerve pain - hold home gabapentin as pt NPO Diet: NPO, LR at 125 mL/hr DVT ppx: defer in the setting of active bleed Code: full Dispo: admit to med/tele History of Present Illness Chief Complaint: bloody emesis Primary Care Provider: Vicki Fletcher DO Pt is a 63 yo female with PMH of sciatic nerve pain presenting d/t blood emesis. Pt notes that she vomited bright red blood and dark emesis earlier today. She has 4 episodes of vomiting and describing the amount as "substantial." She wasn't feeling the best today but wasn't necessarily feeling ill. She felt fine yesterday. No recent changes to her diet. She has never vomited blood before. She notes that her stools have been dark "forever." In the ER, pt was given pantoprazole 80 mg x1, famotidine 20 mg x1, 1L NS, and zofran 4 mg x1. Allergies Allergy/AdvReac Type Severity Reaction Status Date / Time No Known Allergies Allergy Unknown Verified 03/25/24 19:27 Home Medications Medication Instructions Recorded Confirmed Type celecoxib 100 mg capsule 100 mg PO BID PRN Pain 03/25/24 03/25/24 History cholecalciferol (vitamin D3) 25 25 mcg PO QAM 03/25/24 03/25/24 History mcg (1,000 unit) tablet (Vitamin D3) gabapentin 400 mg capsule 400 mg PO QPM 03/25/24 03/25/24 History multivitamin 1 tab PO QAM 03/25/24 03/25/24 History omega 1-okr-hfh-fish oil 1,000 mg 1 cap PO QAM 03/25/24 03/25/24 History (120 mg-180 mg) capsule (Fish Oil) Past Med/Surg History Problem List Upper GI bleed Acute appendicitis S/P appendectomy Social History Smoking Status: Former smoker Feels Safe at Home: Yes Review of Systems Review of Systems: As per HPI Physical Exam Constitutional: NAD, vitals WNL. Eyes: Conjunctivae normal. Respiratory: CTA bilaterally. Non labored breathing. No rhonchi, wheezing, or crackles. Cardiovascular: RRR. No murmurs noted. No LE edema. Gastrointestinal (Abdomen): Nontender, +BS. No masses noted. Skin: No rashes or skin lesions noted. Neurologic: Sensation grossly intact. No FND appreciated. Psychiatric: Speech of normal pace and content. Mood and affect congruent. Results & Data Results & Data Vital Signs (Past 12 Hours) Vital Signs Temp Pulse Pulse Resp BP BP Pulse Ox 03/25/24 16:54 03/25/24 16:43 85 03/25/24 16:30 78 14 124/86 100 03/25/24 15:57 36.4 C L 87 18 103/89 100 O2 Del Method 03/25/24 16:54 Room Air 03/25/24 16:43 03/25/24 16:30 Room Air 03/25/24 15:57 Room Air Supervising Physician Co-Signing Physician Notes patient was seen and examined , agree with above assessment and plan GENERAL: Patient is awake alert in no acute distress patient is resting comfortably and showing no signs of anxiety EYES: The conjunctivae are clear. The pupils are round and reactive. EARS, NOSE, MOUTH AND THROAT: The nose is without any evidence of any deformity. NECK: The neck is nontender and supple. RESPIRATORY: Normal respiratory effort is noted there is no evidence of wheezing rhonchi or rales CARDIOVASCULAR: Regular rate and rhythm noted there no murmurs rubs or gallops normal S1 normal S2. GASTROINTESTINAL: The abdomen is soft. There is tenderness to palpation in the left upper quadrant. There is no guarding rigidity. Rectal exam revealed black stool which was heme positive. MUSCULOSKELETAL/EXTREMITIES: There is no evidence of gross deformity full range of motion is noted in the hips and shoulders. SKIN: There is no obvious evidence of any rash. There are no petechiae, pallor or cyanosis noted. NEUROLOGIC: Patient is awake alert and oriented x3. presents with coffee ground vomiting, upper GI bleed , denies abdominal pain, reports black stools Gi consult PPI EGD in am monitor CBC Resident Activity Tracking Resident Involvement: Resident Care Provided Care Provided: Adult [facility] Medicine
--- NOTE | 2024-03-25 18:19 | XRay Report ---
XR chest 1V portable CLINICAL HISTORY: Nausea and vomiting. COMPARISON STUDY: Chest radiograph March 18, 2017. FINDINGS: Patient is mildly rotated. Lung volumes are normal. Lungs are clear. There is no pneumothor ax or pleural effusion. Cardiac size is normal. Mediastinal contours are normal. There is no evidence for pulmonary edema. IMPRESSION: No acute cardiopulmonary findings. ACT 112: Negative or not required by law. Electronically signed by: Timmy Acosta M.D. 03/25/2024 6:18 PM
[2024-03-25] MEDS ORDERED: ONDANSETRON INJ 2 MG/ML 2 ML VIAL IV PRN (18:46)
[2024-03-25] MEDS ORDERED: ACETAMINOPHEN 1000 MG/100 ML IV IV PRN (18:50)
[2024-03-25] MEDS: LACTATED RINGER'S 1,000 ML IV SCH (19:15)
[2024-03-25 20:57] LABS: Hematocrit (blood only) 25.9 % (37.0-47.0); Hemoglobin 8.5 g/dl (12.0-16.0)
[2024-03-26 00:50] LABS: Hematocrit (blood only) 24.6 % (37.0-47.0)
[2024-03-26 06:23] LABS: Hematocrit (blood only) 23.2 % (37.0-47.0); Hemoglobin 7.5 g/dl (12.0-16.0); Mean Corpuscular Hemoglobin 29.5 pg (25.0-34.0); Mean Corpuscular Hgb Conc 32.3 g/dL (32.0-36.0); Mean Corpuscular Volume 91.3 fL (80.0-100.0); Mean Platelet Volume 10.1 fL (9.4-12.4); Platelet Count 182 K/uL (130-400); RDW Standard Deviation 43.2 fL (36.4-46.3); Red Blood Count 2.54 M/uL (4.20-5.40)
[2024-03-26 06:47] LABS: BUN Creatinine Ratio 37.7 (10-20); Calcium 8.2 mg/dl (8.6-10.3); Creatinine Clr Calc Pharmacy 68.1 ml/min; Est GFR (African American) 106.6 ml/min; Potassium 4.2 mmol/L (3.5-5.1)
[2024-03-26] MEDS ORDERED: SODIUM CHLORIDE 0.9% 250 ML IV PRN ×2 (07:01→07:38)
[2024-03-26] MEDS ORDERED: PANTOPRAZOLE BOLUS/DRIP IV STA (07:03)
[2024-03-26] MEDS: PANTOprazole 80 MG in DEXTROSE 5% 100 ML IV ONE (07:29)
[2024-03-26] MEDS: PANTOprazole 40 MG in DEXTROSE 5% MINI-B 100 ML IV SCH (07:49)
--- NOTE | 2024-03-26 08:33 | Electrocardiogram Report ---
Test Reason : Blood Pressure : / mmHG Vent. Rate : 085 BPM Atrial Rate : 085 BPM P-R Int : 146 ms QRS Dur : 078 ms QT Int : 338 ms P-R-T Axes : 018 078 006 degrees QTc Int : 402 ms Normal sinus rhythm Normal ECG When compared with ECG of 29-MAY-2018 13:44, No significant change was found Confirmed by Quang Smith ([id number]) on 03/26/2024 8:33:15 AM Referred By: REFERRED SELF Confirmed By:Quang Smith
[2024-03-26] MEDS ORDERED: PANTOprazole 40 MG in SYRINGE 0 ML IV SCH (09:00)
--- NOTE | 2024-03-26 10:20 | Gastrointestinal Consultation ---
Date of Consultation March 26, 2024 Assessment & Plan (1) Upper GI bleed: Pleasant woman with hematemesis. She takes celecoxib and ibuprofen so more than likely she has a silent ulcer bleed. Plan EGD. Discussed procedure and risks with patient. She agrees. History of Present Illness Reason for Consultation: hematemesis Attending Physician: Cem Mauro MD History of Present Illness 63 year old female who had three episodes of coffee ground emesis yesterday prior to admit. Then she developed "black stools" but she says her stools are always dark. She had no abdominal pain prior to her hematemesis. She denies taking much ibuprofen but she does take it. She also takes celecoxib. She is up to date on her colonoscopies but never has had an EGD. Allergies Allergy/AdvReac Type Severity Reaction Status Date / Time No Known Allergies Allergy Unknown Verified 03/25/24 19:27 Home Medications Medication Instructions Recorded Confirmed Type celecoxib 100 mg capsule 100 mg PO BID PRN Pain 03/25/24 03/25/24 History cholecalciferol (vitamin D3) 25 25 mcg PO QAM 03/25/24 03/25/24 History mcg (1,000 unit) tablet (Vitamin D3) gabapentin 400 mg capsule 400 mg PO QPM 03/25/24 03/25/24 History multivitamin 1 tab PO QAM 03/25/24 03/25/24 History omega 9-lee-jro-fish oil 1,000 mg 1 cap PO QAM 03/25/24 03/25/24 History (120 mg-180 mg) capsule (Fish Oil) Patient History Social History Smoking Status: Former smoker Hx Alcohol Use: No Hx Substance Use: No Preferred Language: Occitan Communication Ability: Effective Clinical Applications Manager Required: No Beliefs That Will Affect Care: None Current Living Situation: Spouse Other Information That Helps Us Care for You: No Feels Safe at Home: Yes Safety Concerns: Feels Safe At This Time Assistive Devices: Glasses Review of Systems Review of Systems: All systems reviewed & are unremarkable except as noted in HPI & below Physical Exam Constitutional: WD/WN, vitals as above Neck: trachea midline, no thyromegaly Respiratory: normal respiratory effort, lungs clear to auscultation Cardiovascular: RRR, no murmur, no edema Gastrointestinal (Abdomen): normal bowel sounds, soft, nontender, no hepatosplenomegaly Results & Data Vital Signs (Past 12 Hours) Vital Signs Temp Pulse Pulse Pulse Resp BP BP 03/26/24 10:00 36.9 C 66 16 113/61 03/26/24 09:15 36.9 C 72 18 96/54 L 03/26/24 09:00 36.9 C 74 18 100/58 L 03/26/24 08:42 36.7 C 71 18 97/58 L 03/26/24 08:27 36.8 C 70 16 101/56 L 03/26/24 07:46 73 03/26/24 07:20 03/26/24 03:59 36.9 C 75 18 107/59 L 03/25/24 23:03 76 03/25/24 22:45 36.7 C 83 18 112/56 L 03/25/24 22:26 79 15 96/71 L Pulse Ox O2 Del Method 03/26/24 10:00 98 Room Air 03/26/24 09:15 97 03/26/24 09:00 98 03/26/24 08:42 98 03/26/24 08:27 98 Room Air 03/26/24 07:46 03/26/24 07:20 Room Air 03/26/24 03:59 99 Room Air 03/25/24 23:03 03/25/24 22:45 99 Room Air 03/25/24 22:26 97 Room Air Laboratory Results 03/26/24 03/26/24 03/25/24 Range/Units 06:01 00:20 20:22 WBC 7.70 (4.8-10.8) K/ul RBC 2.54 L (4.20-5.40) M/uL Hgb 7.5 L 8.0 L 8.5 L (12.0-16.0) g/dl Hct 23.2 L 24.6 L 25.9 L (37.0-47.0) % MCV 91.3 (80.0-100.0) fL MCH 29.5 (25.0-34.0) pg MCHC 32.3 (32.0-36.0) g/dL RDW Std Deviation 43.2 (36.4-46.3) fL RDW Coeff of Sherri 13.0 (11.5-14.5) % Plt Count 182 (130-400) K/uL MPV 10.1 (9.4-12.4) fL Immature Gran % (Auto) % Neut % (Auto) % Lymph % (Auto) % [place] % (Auto) % Eos % (Auto) % Baso % (Auto) % Neut # (Auto) (1.40-6.50) K/uL Lymph # (Auto) (1.20-3.40) K/uL [place] # (Auto) (0.11-0.59) K/uL Eos # (Auto) (0.00-0.50) K/uL Baso # (Auto) (0.00-0.20) K/uL Immature Gran # (Auto) (0.01-0.20) K/uL PT (9.0-12.0) Seconds INR (0.9-1.1) Sodium 141 (136-145) mmol/L Potassium 4.2 (3.5-5.1) mmol/L Chloride 111 H (98-107) mmol/L Carbon Dioxide 29 (21-32) mmol/L Anion Gap 1 L (3-11) BUN 26 H D (6-23) mg/dl Creatinine 0.69 (0.6-1.2) mg/dl Est Cr Clr Drug Dosing 68.1 Est GFR ( Amer) 106.6 ml/min Est GFR (Non-Af Amer) 92.0 ml/min BUN/Creatinine Ratio 37.7 H (10-20) Glucose 97 (70-99(Fasting)) mg/dl Calcium 8.2 L (8.6-10.3) mg/dl Total Bilirubin (0.2-1.0) mg/dl AST (13-39) U/L ALT (7-52) U/L Alkaline Phosphatase (34-104) U/L Troponin I High Sens (0-14) pg/ml Total Protein (6.0-8.3) gm/dl Albumin (3.4-5.0) gm/dl Globulin (2.5-4.0) gm/dl Albumin/Globulin Ratio (0.9-2) Lipase (11-82) U/L Blood Type Blood Type Recheck A Negative Antibody Screen Crossmatch 03/25/24 03/25/24 Range/Units 16:54 16:23 WBC 12.69 H (4.8-10.8) K/ul RBC 3.65 L (4.20-5.40) M/uL Hgb 10.7 L (12.0-16.0) g/dl Hct 33.6 L (37.0-47.0) % MCV 92.1 (80.0-100.0) fL MCH 29.3 (25.0-34.0) pg MCHC 31.8 L (32.0-36.0) g/dL RDW Std Deviation 42.2 (36.4-46.3) fL RDW Coeff of Sherri 12.6 (11.5-14.5) % Plt Count 253 (130-400) K/uL MPV 10.1 (9.4-12.4) fL Immature Gran % (Auto) 0.6 % Neut % (Auto) 73.5 % Lymph % (Auto) 17.7 % [place] % (Auto) 7.7 % Eos % (Auto) 0.1 % Baso % (Auto) 0.4 % Neut # (Auto) 9.32 H (1.40-6.50) K/uL Lymph # (Auto) 2.25 (1.20-3.40) K/uL [place] # (Auto) 0.98 H (0.11-0.59) K/uL Eos # (Auto) 0.01 (0.00-0.50) K/uL Baso # (Auto) 0.05 (0.00-0.20) K/uL Immature Gran # (Auto) 0.08 (0.01-0.20) K/uL PT 10.5 (9.0-12.0) Seconds INR 1.0 (0.9-1.1) Sodium 138 (136-145) mmol/L Potassium 4.0 (3.5-5.1) mmol/L Chloride 104 (98-107) mmol/L Carbon Dioxide 29 (21-32) mmol/L Anion Gap 5 (3-11) BUN 55 H (6-23) mg/dl Creatinine 0.74 (0.6-1.2) mg/dl Est Cr Clr Drug Dosing Not Reportable Est GFR ( Amer) 99.2 ml/min Est GFR (Non-Af Amer) 85.6 ml/min BUN/Creatinine Ratio 74.3 H (10-20) Glucose 146 H (70-99(Fasting)) mg/dl Calcium 9.2 (8.6-10.3) mg/dl Total Bilirubin 0.3 (0.2-1.0) mg/dl AST 23 (13-39) U/L ALT 21 (7-52) U/L Alkaline Phosphatase 86 (34-104) U/L Troponin I High Sens 4.0 (0-14) pg/ml Total Protein 6.4 (6.0-8.3) gm/dl Albumin 4.3 (3.4-5.0) gm/dl Globulin 2.1 L (2.5-4.0) gm/dl Albumin/Globulin Ratio 2.0 (0.9-2) Lipase 25 (11-82) U/L Blood Type A Negative Blood Type Recheck Antibody Screen NEGATIVE Crossmatch See Detail Diagnostic Findings Chest X-Ray 03/25/24 16:04 XR chest 1V portable CLINICAL HISTORY: Nausea and vomiting. COMPARISON STUDY: Chest radiograph March 18, 2017. FINDINGS: Patient is mildly rotated. Lung volumes are normal. Lungs are clear. There is no pneumothorax or pleural effusion. Cardiac size is normal. Mediastinal contours are normal. There is no evidence for pulmonary edema. IMPRESSION: No acute cardiopulmonary findings. ACT 112: Negative or not required by law. Electronically signed by: Timmy Acosta M.D. 03/25/2024 6:18 PM Abdomen/Pelvis CT 03/25/24 16:28 CT OF THE ABDOMEN AND PELVIS WITH CONTRAST CLINICAL HISTORY: Upper GI bleed. COMPARISON STUDY: CT of the abdomen and pelvis May 08, 2016 and right upper quadrant ultrasound May 29, 2018. TECHNIQUE: Following IV administration of 94 mL of Optiray, axial images of the abdomen and pelvis were obtained from the lung bases to the proximal femurs. Images were reviewed in the axial, sagittal, and coronal planes. IV contrast was administered without complication. Automated exposure control was utilized for the study. A dose lowering technique was utilized adhering to the principles of ALARA. CT DOSE: 728.79 mGy.cm FINDINGS: Lung bases are unremarkable. No pneumatosis, free air or portal venous gas is present. A few subcentimeter hypodense hepatic lesions favor cysts. The spleen, adrenal glands and kidneys are normal. There is no hydronephrosis. There is no biliary or pancreatic ductal dilatation. Hyperdense foci within the stomach likely reflect ingested tablets. No intraluminal contrast within the stomach, small or large bowel is identified to suggest active GI bleed by CT. The appendix is surgically absent. There is no lymphadenopathy. There is a moder ate amount of stool within the rectum. No fluid collections are present. IMPRESSION: 1. No acute process within the abdomen or pelvis. 2. No intraluminal contrast to suggest active GI bleed by CT. 3. No bowel obstruction. No bowel wall thickening. Moderate amount of stool within the rectum. ACT 112: Negative or not required by law. Electronically signed by: Timmy Acosta M.D. 03/25/2024 5:48 PM
--- NOTE | 2024-03-26 10:26 | Anesthesiology Consultation ---
Date of Service March 26, 2024 Assessment & Plan Chart Review Chart Review: Acceptable Risk for Surgery Consults Requested none History Surgery Operation Date: 03/26/24 16:45 Proposed Procedures p Esophagogastroduodenoscopy Dr. Ronald Cardenas Jr, MD Height/Weight Height: 5 ft 3 in Weight: 59 kg Allergies Allergy/AdvReac Type Severity Reaction Status Date / Time No Known Allergies Allergy Unknown Verified 03/25/24 19:27 Medications Home Medications Medication Instructions Recorded Confirmed Last Taken celecoxib 100 mg capsule 100 mg PO BID PRN Pain 03/25/24 03/25/24 Unknown cholecalciferol (vitamin D3) 25 25 mcg PO QAM 03/25/24 03/25/24 03/25/24 mcg (1,000 unit) tablet (Vitamin D3) gabapentin 400 mg capsule 400 mg PO QPM 03/25/24 03/25/24 03/24/24 multivitamin 1 tab PO QAM 03/25/24 03/25/24 03/25/24 omega 4-fpd-jhk-fish oil 1,000 mg 1 cap PO QAM 03/25/24 03/25/24 03/25/24 (120 mg-180 mg) capsule (Fish Oil) Active Medications Generic Name Dose Route Start Last Admin Trade Name Freq PRN Reason Stop Dose Admin Lactated Ringer's 1,000 mls @ 100 mls/hr 03/25/24 19:15 03/26/24 07:49 Lr IV 03/26/24 22:17 100 mls/hr .Q10H RON Infusion Pantoprazole Sodium 40 mg/ 100 mls @ 20 mls/hr 03/26/24 07:30 03/26/24 07:49 Dextrose IV 04/25/24 07:29 8 mg/hr Q5H RON 20 mls/hr Administration 8 MG/HR NPO Date Last Intake of Fluids: 03/25/24 Time Last Intake of Fluids: 14:00 Date Last Intake of Solids: 03/24/24 Time Last Intake of Solids: 18:00 Social History Smoking Status: Former smoker Hx Alcohol Use: No Hx Substance Use: No substance use type: does not use Physical Exam Vital Signs Last Vital Signs Temp 36.9 C 03/26/24 10:00 Pulse 66 03/26/24 10:00 Resp 16 03/26/24 10:00 BP 113/61 03/26/24 10:00 Pulse Ox 98 03/26/24 10:00 O2 Del Method Room Air 03/26/24 10:00 Testing Laboratory Results 03/26/24 06:01 03/26/24 06:01 PT 10.5 Seconds (9.0-12.0) 03/25/24 16:23 INR 1.0 (0.9-1.1) 03/25/24 16:23 Blood Type A Negative 03/25/24 16:54 Antibody Screen NEGATIVE 03/25/24 16:54
--- NOTE | 2024-03-26 11:02 | GI REPORT ---
[facility] Patient: YANDEL MAURICE : 1960 Sex at : Female Age: 63 Years Procedure: Upper GI endoscopy Date: 03/26/2024 Attending Physician: Sheri Cardenas MD Referring MD: Referred Self Indications: - Hematemesis Medications: - Monitored Anesthesia Care - Propofol per Anesthesia - See the Anesthesia note for documentation of the administered medications Complications: - No immediate complications. Estimated Blood Loss: - Estimated blood loss: none. Procedure: - Prior to the procedure, a History and Physical was performed, and patient medications and allergies were reviewed. The patient's tolerance of previous anesthesia was also reviewed. The risks and benefits of the procedure and the sedation options and risks were discussed with the patient. All questions were answered, and informed consent was obtained. Prior Anticoagulants: The patient has taken no anticoagulant or antiplatelet agents. ASA Grade Assessment: II - A patient with mild systemic disease. After reviewing the risks and benefits, the patient was deemed in satisfactory condition to undergo the procedure. - The egd scope was introduced through the mouth and advanced to the second part of the duodenum. - The ultrathin egd scope was introduced through the mouth and advanced to the second part of the duodenum. - The upper GI endoscopy was accomplished without difficulty. - The patient tolerated the procedure well. Findings: - The examined esophagus was normal. - Few non-bleeding cratered gastric ulcers with pigmented material were found in the gastric antrum and in the prepyloric region of the stomach. The largest lesion was 5 mm in largest dimension. - A benign-appearing, intrinsic moderate stenosis was found at the pylorus. This was traversed using the slim endoscope. - The examined duodenum was normal. Impression: - Normal esophagus. - Non-bleeding gastric ulcers with pigmented material. - Gastric stenosis was found at the pylorus. - Normal examined duodenum. - No specimens collected. Recommendation: - Clear liquid diet. 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 All Rights Reserved. The CPT codes, CCI edits and ICD codes generated are intended as suggestions and were generated based on input data. These codes are preliminary and upon clinical coder review may be revised to meet current compliance and payer requirements. The provider is responsible for the final determination of appropriate codes, and modifiers. Dr. Sheri Cardenas This document has been electronically signed. Note Initiated:03/26/2024 Note Completed:03/26/2024 11:01 AM \\[email or web address]\[email or web address]\[id number]
--- NOTE | 2024-03-26 11:03 | Communication Note ---
Date of Service: March 26, 2024 Patient with multiple ulcers and relative gastric outlet obstruction. Needs aggressive PPI and repeat EGD 2-3 months to consider dilatation. Can advance di et. Maybe home tomorrow
--- NOTE | 2024-03-26 11:28 | Anesthesiology Progress Note ---
Date of Service March 26, 2024 Anesthesia Post Procedure Vital Signs Vital Signs: Temp Pulse Pulse Pulse Resp BP BP 03/26/24 11:15 67 16 89/43 L 03/26/24 11:00 72 18 88/36 L 03/26/24 10:00 36.9 C 66 16 113/61 03/26/24 09:15 36.9 C 72 18 96/54 L 03/26/24 09:00 36.9 C 74 18 100/58 L 03/26/24 08:42 36.7 C 71 18 97/58 L 03/26/24 08:27 36.8 C 70 16 101/56 L 03/26/24 07:46 73 03/26/24 07:20 03/26/24 03:59 36.9 C 75 18 107/59 L 03/25/24 23:03 76 03/25/24 22:45 36.7 C 83 18 112/56 L 03/25/24 22:26 79 15 96/71 L 03/25/24 20:30 73 03/25/24 20:00 98 H 22 111/57 L 03/25/24 18:00 75 16 118/70 03/25/24 16:54 03/25/24 16:43 85 03/25/24 16:30 78 14 124/86 03/25/24 15:57 36.4 C L 87 18 103/89 Pulse Ox O2 Del Method 03/26/24 11:15 99 Room Air 03/26/24 11:00 96 03/26/24 10:00 98 Room Air 03/26/24 09:15 97 03/26/24 09:00 98 03/26/24 08:42 98 03/26/24 08:27 98 Room Air 03/26/24 07:46 03/26/24 07:20 Room Air 03/26/24 03:59 99 Room Air 03/25/24 23:03 03/25/24 22:45 99 Room Air 03/25/24 22:26 97 Room Air 03/25/24 20:30 03/25/24 20:00 98 Room Air 03/25/24 18:00 98 Room Air 03/25/24 16:54 Room Air 03/25/24 16:43 03/25/24 16:30 100 Room Air 03/25/24 15:57 100 Room Air Transfer of Care Handoff Completed per policy Notes Mental Status: alert / awake / arousable and participated in evaluation Patient Amnestic to Procedure: Yes Nausea / Vomiting: adequately controlled Pain: adequately controlled Airway Patency, RR, SpO2: stable & adequate BP & HR: stable & adequate Hydration State: stable & adequate Anesthetic Complications: no major complications apparent
[2024-03-26] MEDS: PHENYLEPHRINE 100MCG/ML 10ML SYR IV ONE (11:59)
[2024-03-26] MEDS: PROPOFOL IV EMULSION 10 MG/ML 20 ML VIAL IV ONE ×2 (11:59)
[2024-03-26] MEDS: LIDOCAINE 2% 2 ML VIAL/AMP(20MG/ML) INFIL ONE (11:59)
[2024-03-26] MEDS: SUCRALFATE 1 GM/10 ML UDC PO SCH (13:51)
--- NOTE | 2024-03-26 14:20 | Hospitalist Progress Note ---
Date of Service March 26, 2024 Assessment & Plan (1) Upper GI bleed: Plan: EGD revealed multiple gastric ulcers, none of which were actively bleeding. This is the probable source of her hematemesis however. She is now on Protonix and Carafate. Appreciate GI consultation and recommendations. Pt is a 63 yo female with PMH of sciatic nerve pain presenting d/t blood emesis. (2) Acute blood loss anemia: Plan: She is currently receiving 2 units of packed red blood cells for hemoglobin that has dropped to 7.5. Serial labs ordered. (3) Osteoarthritis: Plan: She takes Celebrex chronically. This is on hold Plan Anticipate eventual discharge to home when she is stable. Hopefully within the next day or 2 Admission and Anticipated Discharge Date Admission Date: March 25, 2024 Subjective The patient was seen after her upper endoscopy today, March 26. She is alert and oriented and doing well. She is receiving 2 units of packed red blood cells for hemoglobin 7.5. EGD revealed several nonbleeding gastric ulcers. She is now on Protonix and sucralfate therapy. She wants to go home as soon as possible. Possibly tomorrow if stable, March 27 Review of Systems 2 Review of Systems: Constitutional-no fever or chills ENT-no blurred vision, no double vision, no epistaxis, no sore throat Respiratory-no cough, no wheezing, no shortness of breath Cardiac-no palpitations, no chest pain, no syncope GI-no nausea, vomiting, diarrhea, melena, hematochezia. She did recently develop hematemesis -no urinary retention, no urinary incontinence, no dysuria, no hematuria Musculoskeletal-no joint pain, no muscle tenderness Skin-no bruising, no rashes, no pruritus Neuro-no isolated weakness, no paresthesia, no weakness Psych-no depression, no anxiety Physical Exam 2 Physical Exam: General-alert and oriented x3, no fever, no chills HEENT-head atraumatic and normocephalic, pupils equal and reactive to light, extraocular muscles intact Neck-no lymphadenopathy or thyromegaly, trachea midline Chest-clear to auscultation. No rales, wheezing or rhonchi Cardiac-regular rate and rhythm, normal S1 and S2 Abdomen-normal bowel sounds, no hepatosplenomegaly Extremities-no cyanosis, clubbing, or edema Neuro-cranial nerves II through XII intact, motor and sensory function within normal limits, strength symmetrical, no focal deficits Psych-normal affect, normal mood Results & Data Results & Data Vital Signs (Past 12 Hours) Vital Signs Temp Pulse Pulse Resp BP BP Pulse Ox 03/26/24 13:50 36.7 C 69 18 94/56 L 99 03/26/24 13:35 36.7 C 67 18 104/56 L 99 03/26/24 13:17 39.8 C H 93 H 18 96/49 L 100 03/26/24 11:30 36.9 C 70 16 98/55 L 99 03/26/24 11:27 70 16 98/55 L 98 03/26/24 11:15 67 16 89/43 L 99 03/26/24 11:00 72 18 88/36 L 96 03/26/24 10:00 36.9 C 66 16 113/61 98 03/26/24 10:00 36.9 C 66 16 113/61 98 03/26/24 09:15 36.9 C 72 18 96/54 L 97 03/26/24 09:00 36.9 C 74 18 100/58 L 98 03/26/24 08:42 36.7 C 71 18 97/58 L 98 03/26/24 08:27 36.8 C 70 16 101/56 L 98 03/26/24 07:46 73 03/26/24 07:20 03/26/24 03:59 36.9 C 75 18 107/59 L 99 O2 Del Method 03/26/24 13:50 03/26/24 13:35 03/26/24 13:17 03/26/24 11:30 Room Air 03/26/24 11:27 03/26/24 11:15 Room Air 03/26/24 11:00 03/26/24 10:00 03/26/24 10:00 Room Air 03/26/24 09:15 03/26/24 09:00 03/26/24 08:42 03/26/24 08:27 Room Air 03/26/24 07:46 03/26/24 07:20 Room Air 03/26/24 03:59 Room Air Laboratory Results 03/26/24 06:01 03/26/24 06:01 PG Care Time/CCT Total # of Minutes Spent Total Time Spent with Patient: Total time spent is greater than 50% in coordination of care (as documented) at patient's floor/unit and/or counseling patient: Coding Level of Care Code 78784 SUB INP/OBS CARE 3/50MIN Diagnoses Upper GI bleed K92.2 Acute blood loss anemia D62 Osteoarthritis M19.90
[2024-03-26 17:49] LABS: Hematocrit (blood only) 32.5 % (37.0-47.0); Hemoglobin 10.9 g/dl (12.0-16.0)
[2024-03-26] MEDS: PANTOprazole 40 MG in SYRINGE 0 ML IV SCH (20:56)
[2024-03-26 23:20] LABS: Hematocrit (blood only) 28.1 % (37.0-47.0); Hemoglobin 9.3 g/dl (12.0-16.0)
[2024-03-27 07:26] LABS: Hematocrit (blood only) 30.3 % (37.0-47.0); Mean Platelet Volume 10.1 fL (9.4-12.4); Platelet Count 179 K/uL (130-400); RDW Coefficient of Variation 13.4 % (11.5-14.5); RDW Standard Deviation 44.6 fL (36.4-46.3); Red Blood Count 3.33 M/uL (4.20-5.40); White Blood Count 8.13 K/ul (4.8-10.8)
[2024-03-27 07:35] LABS: BUN Creatinine Ratio 19.4 (10-20); Calcium 8.4 mg/dl (8.6-10.3); Creatinine Clr Calc Pharmacy 65.3 ml/min; Est GFR (African American) 102.6 ml/min; Est GFR (Non-African American) 88.5 ml/min; Potassium 4.2 mmol/L (3.5-5.1)
--- NOTE | 2024-03-27 09:19 | Gastroenterology Progress Note ---
Date of Service March 27, 2024 Assessment & Plan (1) Acute blood loss anemia: Plan: She is doing well. Will advance to regular diet. Okay with me to discharge Admission and Anticipated Discharge Date Admission Date: March 25, 2024 Subjective Feels well. No further bleeding. Stools solid and brown. Hgb 10 Physical Exam Physical Exam: She looks well Results & Data Vital Signs (Past 12 Hours) Vital Signs Temp Pulse Pulse Resp BP Pulse Ox O2 Del Method 03/27/24 07:39 36.8 C 67 107/61 95 Room Air 03/27/24 07:32 62 03/27/24 02:36 36.8 C 65 16 96/58 L 97 Room Air 03/26/24 21:55 36.8 C 66 16 105/63 97 Room Air 03/26/24 21:55 68
--- NOTE | 2024-03-27 11:11 | Discharge Summary ---
Date of Service March 27, 2024 Admission HPI Per Admitting Provider Pt is a 63 yo female with PMH of sciatic nerve pain presenting d/t blood emesis. Pt notes that she vomited bright red blood and dark emesis earlier today. She has 4 episodes of vomiting and describing the amount as "substantial." She wasn't feeling the best today but wasn't necessarily feeling ill. She felt fine yesterday. No recent changes to her diet. She has never vomited blood before. She notes that her stools have been dark "forever." In the ER, pt was given pantoprazole 80 mg x1, famotidine 20 mg x1, 1L NS, and zofran 4 mg x1. Principal Diagnosis Upper GI bleed thought to be due to gastric ulcers, acute blood loss anemia Discharge Exam General-alert and oriented x3, no fever, no chills HEENT-head atraumatic and normocephalic, pupils equal and reactive to light, extraocular muscles intact Neck-no lymphadenopathy or thyromegaly, trachea midline Chest-clear to auscultation. No rales, wheezing or rhonchi Cardiac-regular rate and rhythm, normal S1 and S2 Abdomen-normal bowel sounds, no hepatosplenomegaly Extremities-no cyanosis, clubbing, or edema Neuro-cranial nerves II through XII intact, motor and sensory function within normal limits, strength symmetrical, no focal deficits Psych-normal affect, normal mood Discharge Data Allergies Allergy/AdvReac Type Severity Reaction Status Date / Time No Known Allergies Allergy Unknown Verified 03/25/24 19:27 Consultations 03/25/24 17:59 ED Decision to Admit Stat 03/25/24 19:13 Consult Gastroenterology Routine Procedures Performed Operation Date: 03/26/24 16:45 Actual Procedures p Esophagogastroduodenoscopy - Sheri Cardenas Jr, MD Ordered Studies 03/25/24 16:28 CT abd pelvis IV con only Stat Hospital Course (1) Upper GI bleed: EGD revealed multiple gastric ulcers, none of which were actively bleeding. This is the probable source of her hematemesis however. She is now on Protonix and Carafate. Appreciate GI consultation and recommendations. She will be discharged home on Protonix and Carafate (2) Acute blood loss anemia: She received 2 units of packed red blood cells on admission for hemoglobin that has dropped to 7.5. Hemoglobin is now stable. (3) Osteoarthritis: She takes Celebrex chronically. This was held while hospitalized and will be discontinued at discharge Plan Home today, March 27, on Protonix and Carafate Total Time Total Time Spent Total Time Spent (In Minutes): 45 minutes Discharge Plan Discharge Items Patient Disposition: Home - Self-Care Reason For Visit: GI BLEED Discharge Diagnosis: Upper GI bleed, acute blood loss anemia, gastric ulcerations Activity: Resume your previous activity Non-emergency contact: Primary Care Provider Call non-emergency contact if: your symptoms worsen Follow-up/Referrals: Vicki Fletcher, DO [Primary Care Provider] - Diet: Regular Addtl Attending Provider Instructions: Take Protonix and Carafate as directed. Stop Celebrex Pending Studies at Discharge: No Stand-Alone Forms: [facility], Smoking Cessation Medications and DC Order Prescriptions: New pantoprazole 40 mg Tablet,Delayed Release (Dr/Ec) 40 mg PO BID Qty: 60 0RF sucralfate [Carafate] 1 gram tablet 1 g PO ACHS Qty: 30 0RF Continued gabapentin 400 mg capsule 400 mg PO QPM cholecalciferol (vitamin D3) [Vitamin D3] 25 mcg (1,000 unit) Tablet 25 mcg PO QAM omega [id number] oil [Fish Oil] 1,000 mg (120 mg-180 mg) Capsule 1 cap PO QAM multivitamin [Multiple Vitamin] Tablet 1 tab PO QAM Discontinued celecoxib 100 mg capsule 100 mg PO BID PRN (Reason: Pain) Discharge Orders: Discharge Order (Routine); Ordered 03/27/24 Ordered By: Cem Mauro Admission Data Admit Date/Time: 03/25/24 18:47 Attending Provider: Cem Mauro Admit Provider: Yamini Chavez Primary Care Provider: Vicki Fletcher Other Providers: Christy Oneill; Amandeep Xavier; Edgardo Dumont; Irena Beyer; Anjelica Marcum; Dimple Freed; Caprice Hill; Ana Paula Browning; [place]; Jerry Boyle; Kiana Hernandez; Arash Villanuevaelli,Lily; Carmen Almanza; Ashlyn Christian; Mary Grace Moya; Lit Mcpherson; Lauri Freitas; Jose Wan; Margie Martinez; Sheri Cardenas Jr; Darius Meyers.; Sekou Dunbar; Julius Brooks; Tyler Vega Coding Level of Care Code 25655 INP/OBS DISCH >30 MIN Diagnoses Upper GI bleed K92.2 Acute blood loss anemia D62 Osteoarthritis M19.90
[2024-03-27] MEDS ORDERED: PANTOprazole 40 MG TAB PO SCH (21:00)
== END 2024-03-27 11:27 | disposition home or self-care (01) | DRG 378 ==
LOC: ED 15:50 → SUATTDRO 18:47 → 2N 18:47